=== PATIENT | male | born 1990 | race American Indian/Alaskan Native ===

== ENCOUNTER 2018-09-24 17:37 | Emergency (ER) | payer SELFPAY ==
--- NOTE | 2018-09-24 20:41 | Emergency Department Report ---
Blank Doc - Documentation Documentation: 28 y.o. male presents to ED for suture removal. Sutures placed 11 days ago. Current smoker cc of swelling around suture site. Exam: sutures to wound of left lateral thigh, nontender. PlaN: Fast track side for evaluation.
--- NOTE | 2018-09-24 22:04 | Emergency Department Report ---
- General Chief Complaint: Laceration/Recheck/Suture Stated Complaint: SUTURES REMOVAL Time Seen by Provider: 09/24/18 20:36 Source: patient Mode of arrival: Ambulatory Limitations: No Limitations - History of Present Illness Initial Comments: Patient's a 28-year-old -[place] male who presents for suture removal 2 in the left lateral thigh placed 11 days ago . No fever no chills no symptoms of infection is well approximated Onset/Timin -: days(s) Extremity Location: Left: Thigh Place: home Patient Tetanus UTD: Yes Context: accidental Associated Symptoms: none - Related Data Previous Rx's Medication Instructions Recorded Last Taken Type Ciprofloxacin HCl [Cipro] 500 mg PO BID #14 tablet 10/18/14 Unknown Rx Ibuprofen [Motrin 800 MG tab] 800 mg PO TID #30 tablet 09/13/18 Unknown Rx cephALEXin [Keflex] 500 mg PO Q12HR #10 cap 09/13/18 Unknown Rx Allergies Allergy/AdvReac Type Severity Reaction Status Date / Time No Known Allergies Allergy Unverified 10/18/14 06:42 ED Review of Systems ROS: Stated complaint: SUTURES REMOVAL Other details as noted in HPI Constitutional: denies: chills, fever Eyes: denies: eye pain, eye discharge, vision change ENT: denies: ear pain, throat pain Respiratory: denies: cough, shortness of breath, wheezing Cardiovascular: denies: chest pain, palpitations Endocrine: no symptoms reported Gastrointestinal: denies: abdominal pain, nausea, diarrhea Genitourinary: denies: urgency, dysuria Musculoskeletal: denies: back pain, joint swelling, arthralgia Skin: other (sutures intact edges well approximated no symptoms of infection ). denies: rash, lesions Neurological: denies: headache, weakness, paresthesias Psychiatric: denies: anxiety, depression Hematological/Lymphatic: denies: easy bleeding, easy bruising ED Past Medical Hx - Past Medical History Previous Medical History?: Yes Additional medical history: lactose intolerance - Surgical History Past Surgical History?: No - Social History Smoking Status: Current Every Day Smoker - Medications Home Medications: Home Medications Medication Instructions Recorded Confirmed Last Taken Type Ciprofloxacin HCl [Cipro] 500 mg PO BID #14 tablet 10/18/14 Unknown Rx Ibuprofen [Motrin 800 MG tab] 800 mg PO TID #30 tablet 09/13/18 Unknown Rx cephALEXin [Keflex] 500 mg PO Q12HR #10 cap 09/13/18 Unknown Rx ED Physical Exam - General Limitations: No Limitations General appearance: alert, in no apparent distress - Head Head exam: Present: atraumatic, normocephalic - Eye Eye exam: Present: normal appearance - ENT ENT exam: Present: mucous membranes moist - Neck Neck exam: Present: normal inspection - Respiratory Respiratory exam: Present: normal lung sounds bilaterally. Absent: respiratory distress - Cardiovascular Cardiovascular Exam: Present: regular rate, normal rhythm. Absent: systolic murmur, diastolic murmur, rubs, gallop - GI/Abdominal GI/Abdominal exam: Present: soft, normal bowel sounds - Rectal Rectal exam: Present: deferred - Extremities Exam Extremities exam: Present: normal inspection - Back Exam Back exam: Present: normal inspection - Neurological Exam Neurological exam: Present: alert, oriented X3 - Psychiatric Psychiatric exam: Present: normal affect, normal mood - Skin Skin exam: Present: warm, dry, intact, normal color, other (sutures left lateral thigh ). Absent: rash ED Course Vital Signs 09/24/18 09/24/18 18:04 20:37 Temperature 98.5 F 98.5 F Pulse Rate 56 L 56 L Respiratory 16 16 Rate Blood Pressure 123/61 Blood Pressure 123/61 [Right] O2 Sat by Pulse 100 100 Oximetry ED Medical Decision Making - Medical Decision Making sutures x 10 removed intact wound healing no drainage no erythema no pain no symptoms of infection pt will follow up with pcp as needed. pt dc'd to home in stable condition at this time. Critical care attestation.: If time is entered above; I have spent that time in minutes in the direct care of this critically ill patient, excluding procedure time. ED Disposition Clinical Impression: Visit for suture removal Disposition: DC-01 TO HOME OR SELFCARE Is pt being admited?: No Does the pt Need Aspirin: No Condition: Stable Instructions: Suture Removal (ED) Referrals: ARIANNE SAMUEL MD [Primary Care Provider] - 3-5 Days Forms: Work/School Release Form(ED) Time of Disposition: 22:04
== END 2018-09-24 22:09 | disposition home or self-care (01) ==
LOC: ED 17:37